=== PATIENT | male | born 1990 | race Two or more races ===

== ENCOUNTER 2017-06-28 14:49 | Inpatient (IN) | payer MEDICARE, MEDICAID ==
[~2017-06-28] VITALS: Ht 167.6 cm; Wt 145.1 kg
[2017-06-28] VITALS (42 sets, daily range): BP systolic 106–142; BP diastolic 42–98
[~2017-06-28 14:49] MED LIST: Haloperidol 5mg/ml Inj IM ONE; LORazepam Inj 2mg/ml 1ml IM ONE
--- NOTE | 2017-06-28 14:52 | Emergency Room Report ---
History of Present Illness General Chief Complaint: Behavioral Complaint Source: Patient, EMS Present Illness HPI Patient is a 27-year-old male who presented after having increased agitation after taking multiple pills. Patient reportedly had taken multiple doses of a workout medication. Patient had prior history of schizophrenia and reportedly takes an injection once a week. The patient reports drinking alcohol earlier in the day. He reports feeling palpitations. He cannot state time of ingestion. This is markedly limited by patient's mental status and poor cooperation.The patient's mom he had been taking Risperdal and had been getting him monthly injections with a psychiatrist of antipsychotic. This reportedly had not been working well Allergies: Coded Allergies: NO KNOWN DRUG ALLERGIES (Unverified Allergy, Unknown, 05/31/14) Patient History Past Medical History: psych hx Reviewed Nursing Documentation: PMH: Agreed, PSxH: Agreed Nursing Documentation-PMH History Of Psychiatric Problem: Yes Review of Systems All Other Systems: limited - by mental status Physical Exam Vital Signs Date Time Temp Pulse Resp B/P (MAP) Pulse Ox O2 Delivery O2 Flow Rate FiO2 06/28/17 14:39 111 20 142/92 99 Room Air Sp02 EP Interpretation: reviewed, normal General Appearance: normal inspection, well appearing, alert, GCS 15, obese Head: atraumatic ENT: normal ENT inspection, hearing grossly normal, normal voice Neck: normal inspection, full range of motion, supple, no bony tend Respiratory: normal inspection, lungs clear, normal breath sounds, no respiratory distress, no retraction, no wheezing Cardiovascular #1: regular rate, rhythm, no edema Gastrointestinal: normal inspection, normal bowel sounds, non tender, soft, no guarding, no hernia Genitourinary: no CVA tenderness Musculoskeletal: normal inspection, back normal, normal range of motion Neurologic: normal inspection, alert, responsive Psychiatric: other - agitated, slight tachycardia, screaming intermittently Skin: normal inspection, normal color, no rash Medical Decision Making Diagnostic Impression: Primary Impression: Overdose Additional Impressions: Psychosis Hypokalemia Prolonged QT interval ER Course Patient presented for psychosis. Differential diagnoses include substance abuse, psychosis, bipolar disorder, depression, malingering. Because of complexity of patient's case laboratory testing and imaging studies were ordered. Because the patient's agitation. Patient was given IV Ativan as well as Haldol IM. Patient was given IV potassium for hypokalemia. Poison control was contacted. They recommend IV fluids as well as magnesium for prolonged QT interval and observation. Charcoal was not specifically recommended patient would not cooperate with oral charcoal. Dr. Shah was contacted for inpatient management due to need for inpatient monitoring and treatment. Labs Test 06/28/17 15:08 White Blood Count 12.9 K/UL (4.8-10.8) Red Blood Count 5.04 M/UL (4.70-6.10) Hemoglobin 15.7 G/DL (14.2-18.0) Hematocrit 46.9 % (42.0-52.0) Mean Corpuscular Volume 93 FL (80-99) Mean Corpuscular Hemoglobin 31.2 PG (27.0-31.0) Mean Corpuscular Hemoglobin Concent 33.6 G/DL (32.0-36.0) Red Cell Distribution Width 10.5 % (11.6-14.8) Platelet Count 288 K/UL (150-450) Mean Platelet Volume 6.7 FL (6.5-10.1) Neutrophils (%) (Auto) 67.5 % (45.0-75.0) Lymphocytes (%) (Auto) 24.5 % (20.0-45.0) Monocytes (%) (Auto) 5.6 % (1.0-10.0) Eosinophils (%) (Auto) 1.5 % (0.0-3.0) Basophils (%) (Auto) 0.8 % (0.0-2.0) Sodium Level 142 MMOL/L (136-145) Potassium Level 2.6 MMOL/L (3.5-5.1) Chloride Level 103 MMOL/L (98-107) Carbon Dioxide Level 24 MMOL/L (21-32) Anion Gap 15 mmol/L (5-15) Blood Urea Nitrogen 11 mg/dL (7-18) Creatinine 1.2 MG/DL (0.55-1.30) Estimat Glomerular Filtration Rate > 60 mL/min (>60) Glucose Level 120 MG/DL (74-106) Calcium Level 9.4 MG/DL (8.5-10.1) Total Bilirubin 0.4 MG/DL (0.2-1.0) Aspartate Amino Transf (AST/SGOT) 20 U/L (15-37) Alanine Aminotransferase (ALT/SGPT) 98 U/L (12-78) Alkaline Phosphatase 78 U/L (46-116) Total Protein 9.7 G/DL (6.4-8.2) Albumin 4.1 G/DL (3.4-5.0) Globulin 5.6 g/dL Albumin/Globulin Ratio 0.7 (1.0-2.7) Salicylates Level 2.0 ug/mL (2.8-20) Urine Opiates Screen Negative (NEGATIVE) Urine Barbiturates Screen Negative (NEGATIVE) Phencyclidine (PCP) Screen Negative (NEGATIVE) Urine Amphetamines Screen Negative (NEGATIVE) Urine Benzodiazepines Screen Negative (NEGATIVE) Urine Cocaine Screen Negative (NEGATIVE) Urine Marijuana (THC) Screen Negative (NEGATIVE) Serum Alcohol < 3 mg/dL EKG Diagnostic Results Rate: tachycardiac Rhythm: NSR ST Segments: no acute changes Rhythm Strip Diag. Results EP Interpretation: yes Rhythm: NSR, no PVC's, no ectopy Last Vital Signs Date Time Temp Pulse Resp B/P (MAP) Pulse Ox O2 Delivery O2 Flow Rate FiO2 06/28/17 14:39 111 20 142/92 99 Room Air Status: unchanged Disposition: ADMITTED INPATIENT Condition: Serious Curtis Gilmore Jun 28, 2017 14:52
[2017-06-28] MEDS ORDERED: LORazepam Inj 2mg/ml 1ml IV ONE (15:00)
[2017-06-28] MEDS ORDERED: Activated Charcoal 50gm/240ml Btl ORAL ONE (15:15)
[2017-06-28 15:35] LABS: BASOPHILS % (AUTO) 0.8 % (0.0-2.0); EOSINOPHILS % (AUTO) 1.5 % (0.0-3.0); LYMPHOCYTES % (AUTO) 24.5 % (20.0-45.0); MEAN CORPUSCULAR HEMOGLOBIN 31.2 PG (27.0-31.0); MEAN CORPUSCULAR HGB CONC 33.6 G/DL (32.0-36.0); MEAN CORPUSCULAR VOLUME 93 FL (80-99); MEAN PLATELET VOLUME 6.7 FL (6.5-10.1); MONOCYTES % (AUTO) 5.6 % (1.0-10.0); NEUTROPHILS % (AUTO) 67.5 % (45.0-75.0); PLATELET COUNT 288 K/UL (150-450); RED BLOOD COUNT 5.04 M/UL (4.70-6.10); RED CELL DISTRIBUTION WIDTH 10.5 % (11.6-14.8); WHITE BLOOD COUNT 12.9 K/UL (4.8-10.8)
[2017-06-28 15:43] LABS: ALANINE AMINOTRANSFERASE 98 U/L (12-78); ALBUMIN/GLOBULIN RATIO 0.7 (1.0-2.7); ALCOHOL < 3 mg/dL; ANION GAP 15 mmol/L (5-15); ASPARTATE AMINO TRANSFERASE 20 U/L (15-37); CALCIUM 9.4 MG/DL (8.5-10.1); CARBON DIOXIDE 24 MMOL/L (21-32); CHLORIDE 103 MMOL/L (98-107); CREATININE 1.2 MG/DL (0.55-1.30); GLOMERULAR FILTRATION RATE > 60 mL/min (>60); SODIUM 142 MMOL/L (136-145); TOTAL PROTEIN 9.7 G/DL (6.4-8.2)
[2017-06-28 15:45] LABS: POTASSIUM 2.6 MMOL/L (3.5-5.1)
[2017-06-28 15:52] LABS: ACETAMINOPHEN < 10 MCG/ML (10-30)
[2017-06-28] MEDS ORDERED: DiphenhydrAMINE 50mg/ml Inj IVP ONE (16:00)
[2017-06-28 18:13] LABS: REFLEX LACTIC ACID YES OR NO YES
[2017-06-28 20:16] LABS: ALANINE AMINOTRANSFERASE 85 U/L (12-78); ALBUMIN/GLOBULIN RATIO 0.8 (1.0-2.7); ANION GAP 8 mmol/L (5-15); ASPARTATE AMINO TRANSFERASE 18 U/L (15-37); CALCIUM 8.1 MG/DL (8.5-10.1); CARBON DIOXIDE 25 MMOL/L (21-32); CHLORIDE 107 MMOL/L (98-107); CREATININE 1.1 MG/DL (0.55-1.30); GLOMERULAR FILTRATION RATE > 60 mL/min (>60); SODIUM 140 MMOL/L (136-145); TOTAL PROTEIN 7.5 G/DL (6.4-8.2)
[2017-06-28] MEDS ORDERED: RISPERDAL4 MG ORAL (21:49)
[2017-06-29] VITALS (11 sets, daily range): BP systolic 111–145; BP diastolic 58–81
[2017-06-29] MEDS ORDERED: DiphenhydrAMINE 50mg/ml Inj IVP PRN (02:00)
[2017-06-29] MEDS ORDERED: LORazepam Inj 2mg/ml 1ml IV PRN (02:00)
[2017-06-29] MEDS ORDERED: Haloperidol Lactate 5 MG in D5W 55 ML IVPB PRN (02:00)
[2017-06-29] MEDS: Heparin 5000 units/ml inj SUBQ SCH ×3 (06:04→21:51)
[2017-06-29 07:42] LABS: HEMOGLOBIN A1C 7.3 % (4.3-6.0)
[2017-06-29 07:56] LABS: BASOPHILS % (AUTO) 0.6 % (0.0-2.0); EOSINOPHILS % (AUTO) 0.4 % (0.0-3.0); LYMPHOCYTES % (AUTO) 18.9 % (20.0-45.0); MEAN CORPUSCULAR HEMOGLOBIN 31.8 PG (27.0-31.0); MEAN CORPUSCULAR HGB CONC 34.3 G/DL (32.0-36.0); MEAN CORPUSCULAR VOLUME 93 FL (80-99); MEAN PLATELET VOLUME 6.9 FL (6.5-10.1); MONOCYTES % (AUTO) 5.6 % (1.0-10.0); NEUTROPHILS % (AUTO) 74.5 % (45.0-75.0); PLATELET COUNT 272 K/UL (150-450); RED BLOOD COUNT 4.48 M/UL (4.70-6.10); RED CELL DISTRIBUTION WIDTH 10.7 % (11.6-14.8); WHITE BLOOD COUNT 13.3 K/UL (4.8-10.8)
[2017-06-29 08:28] LABS: ALANINE AMINOTRANSFERASE 78 U/L (12-78); ALBUMIN/GLOBULIN RATIO 0.8 (1.0-2.7); ANION GAP 13 mmol/L (5-15); ASPARTATE AMINO TRANSFERASE 16 U/L (15-37); CALCIUM 9.2 MG/DL (8.5-10.1); CARBON DIOXIDE 21 MMOL/L (21-32); CHLORIDE 106 MMOL/L (98-107); CHOLESTEROL 170 MG/DL (< 200); CHOLESTEROL/HDL RATIO 4.6 (3.3-4.4); GLOMERULAR FILTRATION RATE > 60 mL/min (>60); POTASSIUM 3.6 MMOL/L (3.5-5.1); SODIUM 140 MMOL/L (136-145); TOTAL PROTEIN 8.1 G/DL (6.4-8.2)
--- NOTE | 2017-06-29 08:53 | General Progress Note ---
Assessment/Plan Status: stable Assessment/Plan 1- Acute Encephalopathy- psych, metabolic? 2- Abn LFT 3- Leukocytosis 4- Psych Plan: Check UA no antibiotic for now Psych eval Subjective ROS Limited/Unobtainable: No Constitutional: Reports: no symptoms HEENT: Reports: no symptoms Cardiovascular: Reports: no symptoms Respiratory: Reports: no symptoms Allergies: Coded Allergies: NO KNOWN DRUG ALLERGIES (Unverified Allergy, Unknown, 05/31/14) Objective Last 24 Hour Vital Signs Date Time Temp Pulse Resp B/P (MAP) Pulse Ox O2 Delivery O2 Flow Rate FiO2 06/29/17 04:37 97.8 85 19 128/69 98 Room Air 06/29/17 04:00 71 06/29/17 01:19 99.4 77 19 113/68 99 Room Air 06/29/17 01:15 76 19 99 Room Air 06/29/17 01:00 77 17 98 Room Air 06/29/17 01:00 99.4 77 17 111/67 98 Room Air 06/29/17 00:45 78 18 100 Room Air 06/29/17 00:30 84 22 97 Room Air 06/29/17 00:15 89 19 98 Room Air 06/29/17 00:00 87 20 97 Room Air 06/28/17 23:45 83 17 100 Room Air 06/28/17 23:30 84 18 99 Room Air 06/28/17 23:15 82 16 100 Room Air 06/28/17 23:00 85 17 100 Room Air 06/28/17 23:00 99.4 85 17 114/55 100 Room Air 06/28/17 22:45 78 20 99 Room Air 06/28/17 22:30 75 22 100 Room Air 06/28/17 22:15 99 15 98 Room Air 06/28/17 22:00 99 15 98 Room Air 06/28/17 21:45 81 19 98 Room Air 06/28/17 21:43 99.4 81 19 112/61 98 Room Air 06/28/17 21:30 77 18 100 Room Air 06/28/17 21:15 80 20 100 Room Air 06/28/17 21:00 78 19 100 Room Air 06/28/17 20:45 80 19 99 Room Air 06/28/17 20:30 99.4 83 19 110/72 99 Room Air 06/28/17 20:30 83 19 99 Room Air 06/28/17 20:15 86 24 98 Room Air 06/28/17 20:00 85 20 99 Room Air 06/28/17 19:45 94 22 100 Room Air 06/28/17 19:41 94 22 100 Room Air 06/28/17 19:30 92 18 100 Room Air 06/28/17 19:24 99.4 95 15 118/65 97 Room Air 06/28/17 19:15 95 15 97 Room Air 06/28/17 19:00 95 15 97 Room Air 06/28/17 18:45 79 12 100 Room Air 06/28/17 18:43 99.4 79 12 120/59 100 Room Air 06/28/17 18:30 103 20 97 Room Air 06/28/17 18:15 103 20 97 Room Air 06/28/17 18:00 103 20 97 Room Air 06/28/17 17:52 99.4 103 20 110/50 97 Room Air 06/28/17 17:45 111 22 100 Room Air 06/28/17 17:30 111 22 100 Room Air 06/28/17 17:15 117 22 100 Room Air 06/28/17 17:00 117 22 100 Room Air 06/28/17 16:45 117 22 100 Room Air 06/28/17 16:45 98.7 120 19 126/58 100 Room Air 06/28/17 16:30 117 17 100 Room Air 06/28/17 16:15 117 17 100 Room Air 06/28/17 16:00 117 17 100 Room Air 06/28/17 15:45 118 17 100 Room Air 06/28/17 15:30 118 17 100 Room Air 06/28/17 15:30 118 17 100 Room Air 06/28/17 15:15 118 17 100 Room Air 06/28/17 15:00 118 17 100 Room Air 06/28/17 14:50 98.7 118 17 142/71 100 Room Air 06/28/17 14:39 111 20 142/92 99 Room Air Laboratory Tests 06/28/17 15:08: White Blood Count 12.9H, Red Blood Count 5.04, Hemoglobin 15.7, Hematocrit 46.9 , Mean Corpuscular Volume 93, Mean Corpuscular Hemoglobin 31.2H, Mean Corpuscular Hemoglobin Concent 33.6, Red Cell Distribution Width 10.5L, Platelet Count 288, Mean Platelet Volume 6.7, Neutrophils (%) (Auto) 67.5, Lymphocytes (%) (Auto) 24.5, Monocytes (%) (Auto) 5.6, Eosinophils (%) (Auto) 1.5, Basophils (%) (Auto) 0.8, Sodium Level 142, Potassium Level 2.6*L, Chloride Level 103, Carbon Dioxide Level 24, Anion Gap 15, Blood Urea Nitrogen 11, Creatinine 1.2, Estimat Glomerular Filtration Rate > 60, Glucose Level 120H , Calcium Level 9.4, Total Bilirubin 0.4, Aspartate Amino Transf (AST/SGOT) 20, Alanine Aminotransferase (ALT/SGPT) 98H, Alkaline Phosphatase 78, Total Protein 9.7H, Albumin 4.1, Globulin 5.6, Albumin/Globulin Ratio 0.7L, Salicylates Level 2.0L, Urine Opiates Screen Negative, Acetaminophen Level < 10L, Urine Barbiturates Screen Negative, Phencyclidine (PCP) Screen Negative, Urine Amphetamines Screen Negative, Urine Benzodiazepines Screen Negative, Urine Cocaine Screen Negative, Urine Marijuana (THC) Screen Negative, Serum Alcohol < 3 06/28/17 17:30: Lactic Acid Level 3.40H 06/28/17 19:20: Sodium Level 140, Potassium Level 4.0#, Chloride Level 107, Carbon Dioxide Level 25, Anion Gap 8, Blood Urea Nitrogen 9, Creatinine 1.1, Estimat Glomerular Filtration Rate > 60, Glucose Level 110H, Calcium Level 8.1L, Total Bilirubin 0.3, Aspartate Amino Transf (AST/SGOT) 18, Alanine Aminotransferase ( ALT/SGPT) 85H, Alkaline Phosphatase 65, Total Protein 7.5, Albumin 3.4, Globulin 4.1, Albumin/Globulin Ratio 0.8L, Salicylates Level 1.2L, Lactic Acid Level 3.50H 06/29/17 06:10: White Blood Count 13.3H, Red Blood Count 4.48L, Hemoglobin 14.2, Hematocrit 41.5L, Mean Corpuscular Volume 93, Mean Corpuscular Hemoglobin 31.8H, Mean Corpuscular Hemoglobin Concent 34.3, Red Cell Distribution Width 10.7L, Platelet Count 272, Mean Platelet Volume 6.9, Neutrophils (%) (Auto) 74.5, Lymphocytes (%) (Auto) 18.9L, Monocytes (%) (Auto) 5.6, Eosinophils (%) (Auto) 0.4, Basophils (%) (Auto) 0.6, Sodium Level 140, Potassium Level 3.6, Chloride Level 106, Carbon Dioxide Level 21, Anion Gap 13, Blood Urea Nitrogen 6L, Creatinine 1.0, Estimat Glomerular Filtration Rate > 60, Glucose Level 118H, Calcium Level 9.2, Total Bilirubin 0.5, Aspartate Amino Transf (AST/SGOT) 16, Alanine Aminotransferase (ALT/SGPT) 78, Alkaline Phosphatase 72, Total Protein 8.1, Albumin 3.7, Globulin 4.4, Albumin/Globulin Ratio 0.8L, Hemoglobin A1c 7.3H , Triglycerides Level 85, Cholesterol Level 170, LDL Cholesterol 128H, HDL Cholesterol 37L, Cholesterol/HDL Ratio 4.6H Height (Feet): 5 Height (Inches): 6.00 Weight (Pounds): 320 General Appearance: no apparent distress EENT: PERRL/EOMI Neck: supple Cardiovascular: normal rate Respiratory/Chest: lungs clear Abdomen: soft Extremities: non-tender Neurologic: gear tester II-XII grossly normal, other - paranoid ideation Driss Shah MD Jun 29, 2017 08:53
--- NOTE | 2017-06-29 08:54 | History & Physical ---
History and Physical History & Physicial H&P and Dictation completed Driss Shah MD Jun 29, 2017 08:54
[2017-06-29] MEDS ORDERED: Haloperidol 5mg/ml Inj IM PRN (12:30)
[2017-06-29] MEDS ORDERED: Haloperidol Decanoate 50mg Inj IM ONE (13:30)
[2017-06-29 16:55] LABS: KETONES,URINE NEGATIVE (NEGATIVE); LEUKOCYTE ESTERASE ,URINE NEGATIVE (NEGATIVE); NITRITE,URINE NEGATIVE (NEGATIVE); PH,URINE 6.5 (4.5-8.0); PROTEIN,URINE NEGATIVE (NEGATIVE); UROBILINOGEN,URINE NORMAL MG/DL (0.0-1.0)
[2017-06-29 16:56] LABS: APPEARANCE,URINE CLEAR
[2017-06-29 17:36] LABS: RBC,URINE 0-2 /HPF (0 - 0); WBC,URINE 0-2 /HPF (0 - 0)
--- NOTE | 2017-06-29 23:46 | Consultation ---
History of Present Illness General Chief Complaint: Behavioral Complaint Present Illness HPI 27-year-old male who presented after having increased agitation after taking multiple pills. Patient reportedly had taken multiple doses of a workout medication. Patient had prior history of schizophrenia and reportedly takes an injection once a month. The patient reports drinking alcohol earlier in the day. the pt kicked staff last night. he stated that he wanted to . he denied si now. the pt is med non compliant/ the pt is low risk fall. he takes diet pil I saw the empty bottle which is B complex The following improvement activities were done on this patient. 1. Implementation of use of specialist reports back to referring clinician or group to close referral group. This will be done through EMR. 2. Provide 31/03, access to eligible clinicians or groups to have a real-time access to the patient's medical records. This will be done through EMR as well. The following MIPS (merit-based incentive payment system) were done on this patient. Measure #130: I obtained updated review of the patient's current medications including [id number], herbal, and nutritional supplements. Measure #318: Screen for future fall risk at least once in 2017. This patient has low risk. Measure #374: Send report to referring provider. This will be done through EMR. Allergies: Coded Allergies: NO KNOWN DRUG ALLERGIES (Unverified Allergy, Unknown, 05/31/14) Medication History Scheduled Risperidone (Risperdal), 4 MG ORAL DAILY, (Reported) Patient History History Provided By: Patient Healthcare decision maker Resuscitation status Full Code Advanced Directive on File Past Medical/Surgical History Past Medical/Surgical History: (1) Anxiety (2) Behavioral change (3) Behavioral change (4) Prolonged QT interval (5) Psychosis (6) Hypokalemia (7) Overdose Review of Systems Constitutional: Reports: malaise, weakness Psychiatric: Reports: prior hx, anxiety, depressed feelings Physical Exam General Appearance: no apparent distress, alert, obese Neurologic: alert, oriented x 3, responsive, normal mood/affect Last 24 Hour Vital Signs Date Time Temp Pulse Resp B/P (MAP) Pulse Ox O2 Delivery O2 Flow Rate FiO2 06/29/17 20:00 97.7 66 20 124/67 Room Air 06/29/17 20:00 62 06/29/17 16:00 97.0 67 17 128/65 97 Room Air 06/29/17 16:00 64 10/22/17 12:00 97.9 79 20 145/81 97 Room Air 06/29/17 12:00 77 06/29/17 08:00 98.2 87 20 140/67 98 Room Air 06/29/17 04:37 97.8 85 19 128/69 98 Room Air 06/29/17 04:00 71 06/29/17 01:19 99.4 77 19 113/68 99 Room Air 06/29/17 01:15 76 19 99 Room Air 06/29/17 01:00 77 17 98 Room Air 06/29/17 01:00 99.4 77 17 111/67 98 Room Air 06/29/17 00:45 78 18 100 Room Air 06/29/17 00:30 84 22 97 Room Air 06/29/17 00:15 89 19 98 Room Air 06/29/17 00:00 87 20 97 Room Air 06/28/17 23:45 83 17 100 Room Air Intake and Output 06/29/17 06/30/17 19:00 07:00 Intake Total 300 ml Balance 300 ml Intake Oral 300 ml # Voids 1 Laboratory Tests Test 06/29/17 06:10 06/29/17 16:05 White Blood Count 13.3 K/UL (4.8-10.8) H Red Blood Count 4.48 M/UL (4.70-6.10) L Hemoglobin 14.2 G/DL (14.2-18.0) Hematocrit 41.5 % (42.0-52.0) L Mean Corpuscular Volume 93 FL (80-99) Mean Corpuscular Hemoglobin 31.8 PG (27.0-31.0) H Mean Corpuscular Hemoglobin Concent 34.3 G/DL (32.0-36.0) Red Cell Distribution Width 10.7 % (11.6-14.8) L Platelet Count 272 K/UL (150-450) Mean Platelet Volume 6.9 FL (6.5-10.1) Neutrophils (%) (Auto) 74.5 % (45.0-75.0) Lymphocytes (%) (Auto) 18.9 % (20.0-45.0) L Monocytes (%) (Auto) 5.6 % (1.0-10.0) Eosinophils (%) (Auto) 0.4 % (0.0-3.0) Basophils (%) (Auto) 0.6 % (0.0-2.0) Sodium Level 140 MMOL/L (136-145) Potassium Level 3.6 MMOL/L (3.5-5.1) Chloride Level 106 MMOL/L (98-107) Carbon Dioxide Level 21 MMOL/L (21-32) Anion Gap 13 mmol/L (5-15) Blood Urea Nitrogen 6 mg/dL (7-18) L Creatinine 1.0 MG/DL (0.55-1.30) Estimat Glomerular Filtration Rate > 60 mL/min (>60) Glucose Level 118 MG/DL (74-106) H Hemoglobin A1c 7.3 % (4.3-6.0) H Calcium Level 9.2 MG/DL (8.5-10.1) Total Bilirubin 0.5 MG/DL (0.2-1.0) Aspartate Amino Transf (AST/SGOT) 16 U/L (15-37) Alanine Aminotransferase (ALT/SGPT) 78 U/L (12-78) Alkaline Phosphatase 72 U/L (46-116) Total Protein 8.1 G/DL (6.4-8.2) Albumin 3.7 G/DL (3.4-5.0) Globulin 4.4 g/dL Albumin/Globulin Ratio 0.8 (1.0-2.7) L Triglycerides Level 85 MG/DL (0-200) Cholesterol Level 170 MG/DL (< 200) LDL Cholesterol 128 mg/dL (<100) H HDL Cholesterol 37 MG/DL (40-60) L Cholesterol/HDL Ratio 4.6 (3.3-4.4) H Hepatitis A IgM Antibody Pending Hepatitis B Surface Antigen Pending Hepatitis B Core IgM Antibody Pending Hepatitis C Antibody Pending HIV (1&2) Antibody Rapid Negative (NEGATIVE) Urine Color Pale yellow Urine Appearance Clear Urine pH 6.5 (4.5-8.0) Urine Specific [place] 1.010 (1.005-1.035) Urine Protein Negative (NEGATIVE) Urine Glucose (UA) Negative (NEGATIVE) Urine Ketones Negative (NEGATIVE) Urine Occult Blood Negative (NEGATIVE) Urine Nitrite Negative (NEGATIVE) Urine Bilirubin Negative (NEGATIVE) Urine Urobilinogen Normal MG/DL (0.0-1.0) Urine Leukocyte Esterase Negative (NEGATIVE) Urine RBC 0-2 /HPF (0 - 0) H Urine WBC 0-2 /HPF (0 - 0) Urine Squamous Epithelial Cells None /LPF (NONE/OCC) Urine Bacteria None /HPF (NONE) Height (Feet): 5 Height (Inches): 6.00 Weight (Pounds): 320 Medications Current Medications Medications (Trade) Dose Ordered Sig/Rody Route PRN Reason Start Time Stop Time Status Last Admin Dose Admin Acetaminophen (Tylenol) 650 mg Q4H PRN ORAL Mild Pain/Temp > 100.5 06/29/17 04:15 07/29/17 04:14 06/29/17 13:44 Clonazepam (KlonoPIN) 1 mg QHS ORAL 06/29/17 21:00 07/06/17 20:59 06/29/17 21:50 Diphenhydramine HCl (Benadryl) 50 mg Q6H PRN IVP Itching 06/29/17 02:00 07/29/17 01:59 Escitalopram Oxalate (Lexapro) 10 mg DAILY ORAL 06/30/17 09:00 07/30/17 08:59 Haloperidol (Haldol) 5 mg EVERY 8 HOURS PRN ORAL Agitation 06/29/17 05:15 07/29/17 05:14 Haloperidol Lactate (Haldol) 10 mg Q8HR PRN IM Agitation 06/29/17 12:30 07/29/17 12:29 Heparin Sodium (Porcine) (Heparin 5000 units/ml) 5,000 units EVERY 8 HOURS SUBQ 06/29/17 06:00 07/29/17 05:59 06/29/17 21:51 Lorazepam (Ativan 2mg/ml 1ml) 2 mg Q4H PRN IV For Anxiety 06/29/17 02:00 07/06/17 01:59 Risperidone (RisperDAL) 2 mg QHS ORAL 06/29/17 21:00 07/29/17 20:59 06/29/17 21:50 Assessment/Plan Status: stable, progressing Assessment/Plan MDD, Schizophrenia. mother and sister at bed side 1. haldol dec 2.haldol prn 3.lexapro 10mg daily 4. risperdal 2mg qhs Lauryn Dupont M.D. Jun 29, 2017 23:46
[2017-06-30] VITALS: BP 96/60
[2017-06-30 04:00] VITALS: BP 116/66
[2017-06-30] MEDS: Heparin 5000 units/ml inj SUBQ SCH ×3 (06:20→21:51)
[2017-06-30 08:00] VITALS: BP 108/56
[2017-06-30 08:19] LABS: BASOPHILS % (AUTO) 0.9 % (0.0-2.0); EOSINOPHILS % (AUTO) 2.8 % (0.0-3.0); LYMPHOCYTES % (AUTO) 23.5 % (20.0-45.0); MEAN CORPUSCULAR HEMOGLOBIN 32.1 PG (27.0-31.0); MEAN CORPUSCULAR HGB CONC 34.3 G/DL (32.0-36.0); MEAN CORPUSCULAR VOLUME 93 FL (80-99); MEAN PLATELET VOLUME 6.9 FL (6.5-10.1); MONOCYTES % (AUTO) 7.9 % (1.0-10.0); NEUTROPHILS % (AUTO) 64.8 % (45.0-75.0); PLATELET COUNT 295 K/UL (150-450); RED BLOOD COUNT 4.45 M/UL (4.70-6.10); RED CELL DISTRIBUTION WIDTH 10.7 % (11.6-14.8)
[2017-06-30 08:54] LABS: ALANINE AMINOTRANSFERASE 75 U/L (12-78); ALBUMIN/GLOBULIN RATIO 0.8 (1.0-2.7); ANION GAP 9 mmol/L (5-15); ASPARTATE AMINO TRANSFERASE 16 U/L (15-37); CALCIUM 9.2 MG/DL (8.5-10.1); CARBON DIOXIDE 24 MMOL/L (21-32); CHLORIDE 104 MMOL/L (98-107); CHOLESTEROL 174 MG/DL (< 200); CREATININE 1.2 MG/DL (0.55-1.30); GLOMERULAR FILTRATION RATE > 60 mL/min (>60); POTASSIUM 4.1 MMOL/L (3.5-5.1); SODIUM 137 MMOL/L (136-145); TOTAL PROTEIN 8.1 G/DL (6.4-8.2)
--- NOTE | 2017-06-30 11:07 | General Progress Note ---
Assessment/Plan Status: stable Assessment/Plan 1- Acute Encephalopathy- psych, metabolic? 2- Abn LFT 3- Leukocytosis 4- Psych 5- New Onset DM Plan: start Metformin 500 bid ok to followup as outpatient Subjective ROS Limited/Unobtainable: No Constitutional: Reports: no symptoms HEENT: Reports: no symptoms Cardiovascular: Reports: no symptoms Allergies: Coded Allergies: NO KNOWN DRUG ALLERGIES (Unverified Allergy, Unknown, 05/31/14) Objective Last 24 Hour Vital Signs Date Time Temp Pulse Resp B/P (MAP) Pulse Ox O2 Delivery O2 Flow Rate FiO2 06/30/17 08:00 97.3 78 20 108/56 99 Room Air 06/30/17 08:00 72 06/30/17 04:00 70 06/30/17 04:00 97.3 58 20 116/66 99 Room Air 58 06/30/17 00:00 97.9 62 20 96/60 98 Room Air 62 06/30/17 00:00 72 06/29/17 20:00 97.7 66 20 124/67 Room Air 06/29/17 20:00 62 06/29/17 16:00 97.0 67 17 128/65 97 Room Air 06/29/17 16:00 64 06/29/17 12:00 97.9 79 20 145/81 97 Room Air 06/29/17 12:00 77 Laboratory Tests 06/29/17 16:05: Urine Color Pale yellow, Urine Appearance Clear, Urine pH 6.5, Urine Specific [place] 1.010, Urine Protein Negative, Urine Glucose (UA) Negative, Urine Ketones Negative, Urine Occult Blood Negative, Urine Nitrite Negative, Urine Bilirubin Negative, Urine Urobilinogen Normal, Urine Leukocyte Esterase Negative , Urine RBC 0-2H, Urine WBC 0-2, Urine Squamous Epithelial Cells None, Urine Bacteria None 06/30/17 07:10: White Blood Count 11.0H, Red Blood Count 4.45L, Hemoglobin 14.3, Hematocrit 41.6L, Mean Corpuscular Volume 93, Mean Corpuscular Hemoglobin 32.1H, Mean Corpuscular Hemoglobin Concent 34.3, Red Cell Distribution Width 10.7L, Platelet Count 295, Mean Platelet Volume 6.9, Neutrophils (%) (Auto) 64.8, Lymphocytes (%) (Auto) 23.5, Monocytes (%) (Auto) 7.9, Eosinophils (%) (Auto) 2.8, Basophils (%) (Auto) 0.9, Sodium Level 137, Potassium Level 4.1, Chloride Level 104, Carbon Dioxide Level 24, Anion Gap 9, Blood Urea Nitrogen 14, Creatinine 1.2, Estimat Glomerular Filtration Rate > 60, Glucose Level 104, Hemoglobin A1c 7.0H, Calcium Level 9.2, Total Bilirubin 0.5, Aspartate Amino Transf (AST/SGOT) 16, Alanine Aminotransferase (ALT/SGPT) 75, Alkaline Phosphatase 67, Total Protein 8.1, Albumin 3.6, Globulin 4.5, Albumin/Globulin Ratio 0.8L, Triglycerides Level 143, Cholesterol Level 174, LDL Cholesterol 130H , HDL Cholesterol 35L, Cholesterol/HDL Ratio 5.0H Height (Feet): 5 Height (Inches): 6.00 Weight (Pounds): 320 General Appearance: no apparent distress EENT: PERRL/EOMI Neck: supple Cardiovascular: normal rate Respiratory/Chest: lungs clear Abdomen: soft Extremities: non-tender Driss Shah MD Jun 30, 2017 11:07
[2017-06-30 12:00] VITALS: BP 119/68
[2017-06-30] MEDS: metFORMIN 500mg tab ORAL SCH ×2 (12:01→17:29)
[2017-06-30 15:32] VITALS: BP 125/67
[2017-06-30] MEDS ORDERED: Ketorolac 30mg Inj IV PRN (18:45)
[2017-06-30 20:00] VITALS: BP 120/75
[2017-06-30] MEDS ORDERED: DiphenhydrAMINE 50mg/ml Inj IVP PRN (20:15)
[2017-06-30] MEDS ORDERED: LORazepam Inj 2mg/ml 1ml IV PRN (20:15)
[2017-06-30] MEDS ORDERED: Haloperidol 5mg/ml Inj IM PRN (20:15)
--- NOTE | 2017-06-30 22:46 | General Progress Note ---
Assessment/Plan Status: stable, progressing Subjective Neurologic/Psychiatric: Reports: anxiety, depressed, emotional problems Allergies: Coded Allergies: NO KNOWN DRUG ALLERGIES (Unverified Allergy, Unknown, 05/31/14) Subjective doing well however anxious and stated that meds work Objective Last 24 Hour Vital Signs Date Time Temp Pulse Resp B/P (MAP) Pulse Ox O2 Delivery O2 Flow Rate FiO2 06/30/17 20:00 98.1 71 20 120/75 97 Room Air 06/30/17 15:32 98.2 68 20 125/67 98 Room Air 06/30/17 12:00 97.9 72 20 119/68 100 Room Air 06/30/17 08:00 97.3 78 20 108/56 99 Room Air 06/30/17 08:00 72 06/30/17 04:00 70 06/30/17 04:00 97.3 58 20 116/66 99 Room Air 58 06/30/17 00:00 97.9 62 20 96/60 98 Room Air 62 06/30/17 00:00 72 Intake and Output 06/30/17 07/01/17 19:00 07:00 Intake Total 1040 ml Balance 1040 ml Intake Oral 1040 ml # Voids 4 Laboratory Tests 06/30/17 07:10: White Blood Count 11.0H, Red Blood Count 4.45L, Hemoglobin 14.3, Hematocrit 41.6L, Mean Corpuscular Volume 93, Mean Corpuscular Hemoglobin 32.1H, Mean Corpuscular Hemoglobin Concent 34.3, Red Cell Distribution Width 10.7L, Platelet Count 295, Mean Platelet Volume 6.9, Neutrophils (%) (Auto) 64.8, Lymphocytes (%) (Auto) 23.5, Monocytes (%) (Auto) 7.9, Eosinophils (%) (Auto) 2.8, Basophils (%) (Auto) 0.9, Sodium Level 137, Potassium Level 4.1, Chloride Level 104, Carbon Dioxide Level 24, Anion Gap 9, Blood Urea Nitrogen 14, Creatinine 1.2, Estimat Glomerular Filtration Rate > 60, Glucose Level 104, Hemoglobin A1c 7.0H, Calcium Level 9.2, Total Bilirubin 0.5, Aspartate Amino Transf (AST/SGOT) 16, Alanine Aminotransferase (ALT/SGPT) 75, Alkaline Phosphatase 67, Total Protein 8.1, Albumin 3.6, Globulin 4.5, Albumin/Globulin Ratio 0.8L, Triglycerides Level 143, Cholesterol Level 174, LDL Cholesterol 130H , HDL Cholesterol 35L, Cholesterol/HDL Ratio 5.0H 06/30/17 20:35: Troponin I 0.006 Height (Feet): 5 Height (Inches): 6.00 Weight (Pounds): 320 General Appearance: no apparent distress, alert, obese Neurologic: alert, oriented x 3, responsive, depressed affect Lauryn Dupont M.D. Jun 30, 2017 22:45
[2017-07-01] VITALS: BP 115/62
[2017-07-01 03:43] VITALS: BP 114/62
[2017-07-01] MEDS: metFORMIN 500mg tab ORAL SCH ×2 (05:31→05:52)
[2017-07-01] MEDS: Heparin 5000 units/ml inj SUBQ SCH ×2 (05:33→05:51)
[2017-07-01 08:00] VITALS: BP 137/87
[2017-07-01 08:22] LABS: BASOPHILS % (AUTO) 0.8 % (0.0-2.0); EOSINOPHILS % (AUTO) 4.2 % (0.0-3.0); LYMPHOCYTES % (AUTO) 25.9 % (20.0-45.0); MEAN CORPUSCULAR HEMOGLOBIN 32.5 PG (27.0-31.0); MEAN CORPUSCULAR HGB CONC 34.9 G/DL (32.0-36.0); MEAN CORPUSCULAR VOLUME 93 FL (80-99); MEAN PLATELET VOLUME 6.6 FL (6.5-10.1); MONOCYTES % (AUTO) 6.6 % (1.0-10.0); NEUTROPHILS % (AUTO) 62.5 % (45.0-75.0); PLATELET COUNT 303 K/UL (150-450); RED CELL DISTRIBUTION WIDTH 10.8 % (11.6-14.8); WHITE BLOOD COUNT 9.4 K/UL (4.8-10.8)
[2017-07-01 08:40] LABS: ALANINE AMINOTRANSFERASE 74 U/L (12-78); ALBUMIN/GLOBULIN RATIO 0.8 (1.0-2.7); ANION GAP 8 mmol/L (5-15); ASPARTATE AMINO TRANSFERASE 16 U/L (15-37); CALCIUM 9.1 MG/DL (8.5-10.1); CARBON DIOXIDE 26 MMOL/L (21-32); CHLORIDE 107 MMOL/L (98-107); CHOLESTEROL 168 MG/DL (< 200); CHOLESTEROL/HDL RATIO 4.8 (3.3-4.4); CREATININE 1.1 MG/DL (0.55-1.30); GLOMERULAR FILTRATION RATE > 60 mL/min (>60); POTASSIUM 4.5 MMOL/L (3.5-5.1); SODIUM 141 MMOL/L (136-145)
[2017-07-01 11:50] LABS: HEMOGLOBIN A1C 5.6 % (4.3-6.0)
--- NOTE | 2017-07-01 18:05 | General Progress Note ---
Assessment/Plan Status: doing well, stable, progressing Subjective Neurologic/Psychiatric: Reports: anxiety, depressed, emotional problems Allergies: Coded Allergies: NO KNOWN DRUG ALLERGIES (Unverified Allergy, Unknown, 05/31/14) Subjective doing well no complains Objective Last 24 Hour Vital Signs Date Time Temp Pulse Resp B/P (MAP) Pulse Ox O2 Delivery O2 Flow Rate FiO2 07/01/17 08:00 98.7 88 20 137/87 97 Room Air 07/01/17 03:43 97.5 66 18 114/62 95 Room Air 07/01/17 00:00 97.6 17 115/62 96 Room Air 06/30/17 20:00 98.1 71 20 120/75 97 Room Air Intake and Output 07/01/17 07/02/17 19:00 07:00 Intake Total 350 ml Balance 350 ml Intake Oral 350 ml # Voids 1 # Bowel Movements 1 Laboratory Tests 06/30/17 20:35: Troponin I 0.006 07/01/17 06:47: White Blood Count 9.4, Red Blood Count 4.40L, Hemoglobin 14.3, Hematocrit 40.9L , Mean Corpuscular Volume 93, Mean Corpuscular Hemoglobin 32.5H, Mean Corpuscular Hemoglobin Concent 34.9, Red Cell Distribution Width 10.8L, Platelet Count 303, Mean Platelet Volume 6.6, Neutrophils (%) (Auto) 62.5, Lymphocytes (%) (Auto) 25.9, Monocytes (%) (Auto) 6.6, Eosinophils (%) (Auto) 4.2H, Basophils (%) (Auto) 0.8, Sodium Level 141, Potassium Level 4.5, Chloride Level 107, Carbon Dioxide Level 26, Anion Gap 8, Blood Urea Nitrogen 19H, Creatinine 1.1, Estimat Glomerular Filtration Rate > 60, Glucose Level 99, Hemoglobin A1c 5.6, Calcium Level 9.1, Total Bilirubin 0.3, Aspartate Amino Transf (AST/SGOT) 16, Alanine Aminotransferase (ALT/SGPT) 74, Alkaline Phosphatase 69, Total Protein 8.0, Albumin 3.5, Globulin 4.5, Albumin/Globulin Ratio 0.8L, Triglycerides Level 120, Cholesterol Level 168, LDL Cholesterol 122H , HDL Cholesterol 35L, Cholesterol/HDL Ratio 4.8H Height (Feet): 5 Height (Inches): 6.00 Weight (Pounds): 320 General Appearance: no apparent distress, alert, obese Neurologic: alert, oriented x 3, normal mood/affect Lauryn Dupont M.D. Jul 01, 2017 18:05
[2017-07-01] MEDS ORDERED: Ketorolac 30mg Inj IV PRN (20:15)
--- NOTE | 2017-07-02 15:18 | Cardiology Report ---
APPROVED REPORT EKG Measurement Heart [id number] Normal sinus rhythm Possible Right ventricular hypertrophy Abnormal ECG
--- NOTE | 2017-07-03 13:33 | Discharge Summary ---
Discharge Summary Hospital Course Date of Admission Jun 28, 2017 at 21:23 Date of Discharge Jul 01, 2017 at 11:00 Admitting Diagnosis hypokalemia overdose HPI Milo Spangler is a 27 year old male who was admitted on Jun 28, 2017 at 21:23 for Hypokalemia Overdose Hospital Course [id number] Discharge Discharge Disposition Patient was discharged to Home (01) Discharge Diagnoses: Brenda Busch NP Jul 03, 2017 13:33
--- NOTE | 2017-07-11 13:00 | Discharge Summary 2 SIG ---
DATE OF ADMISSION: 06/28/2017 DATE OF DISCHARGE: 07/01/2017 SOFTWARE TESTER: Lauryn Dupont MD BRIEF HOSPITAL COURSE: The patient is a 27-year-old male, who presented to ED due to behavioral complaints. The patient had increased agitation after taking multiple pills and reportedly took multiple doses of a workout medication. The patient has history of schizophrenia and reportedly takes an injection once a week. He reported drinking alcohol earlier in the day and felt palpitations. He has been on Risperdal and on injectable antipsychotics which was reportedly not working well. On evaluation at ED, he was given IV Ativan as well as Haldol. Labs showed hypokalemia. Potassium level 2.6. He was given intravenous potassium replacement. Poison Control was called and recommended IV fluids as well as magnesium for prolonged QT interval. Charcoal was not specifically recommended, and patient would not cooperate with oral charcoal. EKG showed sinus rhythm with tachycardia. He was admitted to medical floor and underwent psychiatric evaluation. He was diagnosed with major depressive disorder and schizophrenia. He was given Lexapro 10 mg daily and Risperdal 2 mg at bedtime with p.r.n. Haldol. Glucose was elevated. Hemoglobin A1c 7.3. He was started on metformin. Medications eventually started working and he was discharged home. FINAL DIAGNOSES: 1. Acute metabolic encephalopathy. 2. Abnormal liver function tests. 3. New onset diabetes mellitus. 4. Schizophrenia. 5. Major depressive disorder. DISPOSITION: The patient was discharged home. FOLLOWUP: Advised to follow up with PMD and Psychiatry in a week. Driss Shah M.D. I have been assigned to dictate discharge summary on this account and I was not involved in the patient's management. Brenda Busch N.P. DR: SP JOB#: [id number] CC:
== END 2017-07-01 11:00 | disposition home or self-care (01) | DRG 917 ==
LOC: EDBD 14:49 → EMR 15:30 → EDUNIT# 15:30 → 2E 21:23 → ENRESERV 21:29 → EDBEDREQ 21:31 → 3E 06-30 22:14
DX: T50.992A Poisoning by other drugs, medicaments and biological substances, intentional self-harm, initial encounter (principal); G93.40 Encephalopathy, unspecified; F20.9 Schizophrenia, unspecified; I45.81 Long QT syndrome; F32.9 Major depressive disorder, single episode, unspecified; E87.6 Hypokalemia; E11.9 Type 2 diabetes mellitus without complications; D72.829 Elevated white blood cell count, unspecified; Y92.098 Other place in other non-institutional residence as the place of occurrence of the external cause; R79.89 Other specified abnormal findings of blood chemistry; Z91.14 Patient's other noncompliance with medication regimen
CPT/HCPCS: 36415; 80053; 80061; 80307; 80329; 81001; 83036; 83605; 84484; 85025; 86703; 86705; 86709; 86803; 87340; 93005; 99285